=== PATIENT | female | born 1990 | race Caucasian/White ===

== ENCOUNTER 2016-11-17 18:55 | Emergency (ER) | payer OTHER ==
[~2016-11-17 18:55] MED LIST: LORT5TAB PO; NORE1TAB57 PO
[2016-11-17 19:04] VITALS: BP 160/99; PULSE 118; RESP 20; TEMP 98.3; O2SAT 100
[2016-11-17 19:05] VITALS: BP 160/99; PULSE 118; RESP 20; TEMP 98.3; O2SAT 100
--- NOTE | 2016-11-17 19:58 | PD ---
HPI Chief Complaint: General Weakness Time Seen by Provider: 19:45 Travel History International Travel<30 days: No Contact w/Intl Traveler<30days: No Traveled to known affect area: No History of Present Illness HPI The patient is a 26-year-old female who complains of lightheadedness and generalized weakness for one hour. She has been laying out in the sun today and got a significant sunburn. She appears to be dehydrated and she is nauseated without vomiting. This morning she had a sore throat and some rhinorrhea. She denies any significant cough. She is not short of breath. FOR[facility]LY [facility] Past Medical History Medical History: Denies Significant Hx Diminished Hearing: No Tetanus Vaccination: Never Vaccinated Influenza Vaccination: No ?: Unknown LMP: 11/13/2016 : 0 Past Surgical History Surgical History: No Previous Surgery Social History Alcohol Use: Yes (occassional) Tobacco Use: No Substance Use: Yes (occassional marijuana) Allergies-Medications (Allergen,Severity, Reaction): Coded Allergies: Latex (Verified Allergy, Mild, Rash, 11/17/16) Reported Meds & Prescriptions Reported Meds & Active Scripts Active Lortab 5/500 (Acetaminophen/Hydrocodone Bitart) 5 Mg/500 Mg Tab 1-2 Tab PO Q4- 6HPRN FOR PAIN Reported Loestrin 21 1.5/30 (Ethinyl Estradiol/Norethindrone) 21 Tab Pack 1 Tab PO DAILY Review of Systems Except as stated in HPI: all other systems reviewed are Neg Physical Exam Narrative GENERAL: The patient appears alert, oriented 3, moderately dehydrated appearing. Her vital signs show pulse of 118 and blood pressure 160/99 but are otherwise normal. SKIN: Focused skin assessment warm/dry. There is a significant sunburn on the back and on the front trunk. No other skin rashes noted. HEAD: Atraumatic. Normocephalic. EYES: Pupils equal and round. No scleral icterus. No injection or drainage. ENT: No nasal bleeding or discharge. Mucous membranes pink but somewhat dry. NECK: Trachea midline. No JVD. CARDIOVASCULAR: Regular rate and rhythm. No murmur appreciated. RESPIRATORY: No accessory muscle use. Clear to auscultation. Breath sounds equal bilaterally. GASTROINTESTINAL: Abdomen soft, non-tender, nondistended. Hepatic and splenic margins not palpable. MUSCULOSKELETAL: No obvious deformities. No clubbing. No cyanosis. No edema. NEUROLOGICAL: Awake and alert. No obvious cranial nerve deficits. Motor grossly within normal limits. Normal speech. PSYCHIATRIC: Appropriate mood and affect; insight and judgment normal. Data Data Last Documented VS Vital Signs Date Time Temp Pulse Resp B/P Pulse Ox O2 Delivery O2 Flow Rate FiO2 11/17/16 20:45 122 20 140/65 98 Room Air 11/17/16 19:05 98.3 Orders Complete Blood Count With Diff (11/17/16 19:58) Comprehensive Metabolic Panel (11/17/16 19:58) Urinalysis - C+S If Indicated (11/17/16 19:58) Beta Hcg (Quant/Titer) (11/17/16 19:58) Magnesium (Mg) (11/17/16 19:58) Thyroid Stimulating Hormone (11/17/16 19:58) Sodium Chlor 0.9% 1000 Ml Inj (Ns 1000 M (11/17/16 20:30) Ondansetron Inj (Zofran Inj) (11/17/16 20:30) Labs Laboratory Tests Test 11/17/16 11/17/16 20:10 20:15 Urine Color YELLOW Urine Turbidity CLEAR Urine pH 5.5 Urine Specific [place] 1.017 Urine Protein NEG mg/dL Urine Glucose (UA) NEG mg/dL Urine Ketones NEG mg/dL Urine Occult Blood LARGE Urine Nitrite NEG Urine Bilirubin NEG Urine Leukocyte Esterase NEG Urine RBC 0-3 /hpf Urine WBC 0-2 /hpf Urine Squamous Epithelial 6-8 /hpf Cells Urine Mucus RARE /lpf Microscopic Urinalysis Comment CULT NOT INDICATED White Blood Count 20.2 TH/MM3 Red Blood Count 4.54 MIL/MM3 Hemoglobin 13.1 GM/DL Hematocrit 39.0 % Mean Corpuscular Volume 85.8 FL Mean Corpuscular Hemoglobin 28.9 PG Mean Corpuscular Hemoglobin 33.7 % Concent Red Cell Distribution Width 12.0 % Platelet Count 278 TH/MM3 Mean Platelet Volume 9.3 FL Neutrophils (%) (Auto) 78.5 % Lymphocytes (%) (Auto) 11.2 % Monocytes (%) (Auto) 5.3 % Eosinophils (%) (Auto) 0.3 % Basophils (%) (Auto) 4.7 % Neutrophils # (Auto) 15.8 TH/MM3 Lymphocytes # (Auto) 2.3 TH/MM3 Monocytes # (Auto) 1.1 TH/MM3 Eosinophils # (Auto) 0.1 TH/MM3 Basophils # (Auto) 0.9 TH/MM3 CBC Comment AUTO DIFF Differential Total Cells 100 Counted Neutrophils % (Manual) 78 % Lymphocytes % 16 % Monocytes % 6 % Neutrophils # (Manual) 15.8 TH/MM3 Differential Comment FINAL DIFF MANUAL Platelet Estimate NORMAL Platelet Morphology Comment NORMAL Red Cell Morphology Comment NORMAL Sodium Level 140 MEQ/L Potassium Level 3.8 MEQ/L Chloride Level 105 MEQ/L Carbon Dioxide Level 25.0 MEQ/L Anion Gap 10 MEQ/L Blood Urea Nitrogen 11 MG/DL Creatinine 0.86 MG/DL Estimat Glomerular Filtration 81 ML/MIN Rate Random Glucose 101 MG/DL Calcium Level 8.4 MG/DL Magnesium Level 1.7 MG/DL Total Bilirubin 0.3 MG/DL Aspartate Amino Transf 13 U/L (AST/SGOT) Alanine Aminotransferase 20 U/L (ALT/SGPT) Alkaline Phosphatase 82 U/L Total Protein 7.2 GM/DL Albumin 3.5 GM/DL Thyroid Stimulating Hormone 0.763 uIU/ML 3rd Gen Human Chorionic Gonadotropin, LESS THAN 1 Quant MIU/ML MDM Medical Decision Making Medical Screen Exam Complete: Yes Emergency Medical Condition: Yes Medical Record Reviewed: Yes Interpretation(s) The CBC shows a white count of 20,200 with 79% neutrophils. The complete metabolic profile shows a GFR of 81, calcium 8.4 but is otherwise normal. The beta-hCG is less than 1. The TSH is normal. The urine shows large blood but is otherwise normal and culture is not indicated. Differential Diagnosis Sunburn, dehydration, electrolyte disorder, occult infection, urinary tract infection, hypothyroid Narrative Course The patient appears to have a sunburn along with dehydration. The elevation of the white count at 20,200 reflex the apparent dehydration/stress. The patient may also have a viral syndrome. She did have a sore throat and rhinorrhea this morning. Diagnosis Primary Impression: Sunburn Additional Impressions: Mild dehydration Viral syndrome Additional Instructions: It is important to rest. He will get a 2 day work excuse and you should hydrate yourself with Gatorade/water and crackers. Follow-up this week with your primary care physician. Med/Other Pt SpecificInfo: No Change to Meds Disposition: 01 DISCHARGE HOME Condition: Stable Tong Jean MD Nov 17, 2016 19:58
[2016-11-17] MEDS ORDERED: ONDANSETRON HCL 4 MG/2 ML VIAL IV ONE (20:30)
[2016-11-17] MEDS ORDERED: SODIUM CHLOR 0.9% 1000 ML INJ 1,000 ML IV SCH (20:30)
[2016-11-17 20:33] LABS: BLOOD, URINE LARGE (NEG); GLUCOSE,URINE NEG (NEG); KETONE, URINE NEG (NEG); NITRITE,URINE NEG (NEG); PH, URINE 5.5 (5.0-8.5)
[2016-11-17 20:36] LABS: AUTOMATED NEUTROPHIL # 15.8 TH/MM3 (1.8-7.7); BASOPHIL # 0.9 TH/MM3 (0-0.2); BASOPHIL % 4.7 % (0.0-2.0); EOSINOPHIL # 0.1 TH/MM3 (0-0.4); EOSINOPHIL % 0.3 % (0.0-4.0); LYMPH % 11.2 % (9.0-44.0); LYMPHOCYTE # 2.3 TH/MM3 (1.0-4.8); MEAN CELL VOLUME 85.8 FL (80.0-100.0); MEAN CORPUSCULAR HEMOGLOBIN 28.9 PG (27.0-34.0); MEAN CORPUSCULAR HGB CONC 33.7 % (32.0-36.0); MONO % 5.3 % (0.0-8.0); NEUT % 78.5 % (16.0-70.0); PLATELET COUNT 278 TH/MM3 (150-450); RED BLOOD COUNT 4.54 MIL/MM3 (4.00-5.30); WHITE BLOOD COUNT 20.2 TH/MM3 (4.0-11.0)
[2016-11-17 20:43] LABS: CHLORIDE 105 MEQ/L (98-107); POTASSIUM 3.8 MEQ/L (3.5-5.1); SODIUM (NA) 140 MEQ/L (136-145)
[2016-11-17 20:45] VITALS: BP 140/65; PULSE 122; RESP 20; O2SAT 98
[2016-11-17 20:48] LABS: ANION GAP 10 MEQ/L (5-15); BLOOD UREA NITROGEN 11 MG/DL (7-18); MAGNESIUM 1.7 MG/DL (1.5-2.5)
[2016-11-17 20:51] LABS: ALT (GPT) 20 U/L (10-53); AST (GOT) 13 U/L (15-37)
[2016-11-17 20:52] LABS: GLOMERULAR FILTRATION RATE 81 ML/MIN (>89)
[2016-11-17 20:53] LABS: TOTAL BILIRUBIN ADULT 0.3 MG/DL (0.2-1.0)
[2016-11-17 20:54] LABS: ALKALINE PHOSPHATASE 82 U/L (45-117)
[2016-11-17 20:57] LABS: URINE COLOR YELLOW (YELLW/STRAW)
[2016-11-17 20:57] LABS: BETA HCG QUANT LESS THAN 1 MIU/ML (0-5)
[2016-11-17 20:58] LABS: COMMENT (UR) CULT NOT INDICATED; CULTURE IF INDICATED CULT NOT INDICATED; MUCUS URINE RARE /lpf (OCC); RBC, URINE 0-3 /hpf (0-3); WBC, URINE 0-2 /hpf (0-5)
[2016-11-17 21:24] LABS: HEMO FLAGS AUTO DIFF
[2016-11-17 21:34] LABS: NEUTROPHIL # MANUAL DIFF 15.8 TH/MM3 (1.8-7.7); POLYS (SEG NEUTROPHILS) 78 % (16-70); WBC DIFF SAMPLE 100
[2016-11-17 21:35] LABS: PLATELET ESTIMATE SMEAR NORMAL (NORMAL); PLATELET MORPHOLOGY NORMAL (NORMAL); SCAN/DIFF FINAL DIFF MANUAL
[2016-11-17 22:28] VITALS: BP 116/73; PULSE 118; RESP 18; O2SAT 99
== END 2016-11-17 22:44 | disposition home or self-care (01) ==
LOC: PHED 18:55
DX: L55.9 Sunburn, unspecified (principal); E86.0 Dehydration; B34.9 Viral infection, unspecified
CPT/HCPCS: 80053; 81001; 83735; 84443; 84702; 85007; 85027; 96361; 96374; 99284; J2405; J7030